=== PATIENT | female | born 1960 | race Caucasian/White ===

== ENCOUNTER 2018-10-02 08:53 | Outpatient (CLI) | payer OTHER ==
--- NOTE | 2018-10-02 11:01 | MMO ---
BILATERAL MAMMOGRAMS: DATE: 10/02/18 HISTORY: Screening mammography. COMPARISON: 09/29/16 and 07/02/15. FINDINGS: Scattered fibroglandular densities and benign-appearing calcifications. Multiple lobular partially ob scured isodense nodules throughout each breast are stable and consistent with a benign process. No ne w dominant mass or suspicious calcifications. The study was evaluated with the assistance of computer-aided detection. IMPRESSION: BIRADS 2: Benign Finding(s) Suggest routine follow-up. POS: [facility]PA
== END 2018-10-02 08:54 | disposition home or self-care (01) ==
LOC: SCSMAMMO 08:53
PROVIDERS: ATTEND Family Medicine
DX: Z12.31 Encounter for screening mammogram for malignant neoplasm of breast (principal)
CPT/HCPCS: 77067